=== PATIENT | female | born 1965 | race Native Hawaiian/Other Pacific Islander ===

== ENCOUNTER 2018-12-29 10:02 | Outpatient (CLI) | payer OTHER | END 2018-12-29 10:05 | disposition short-term general hospital (02) | LOC: AMB 10:02 | DX: R06.02 Shortness of breath (principal) | CPT/HCPCS: A0425; A0427 ==

== ENCOUNTER 2018-12-29 10:07 | Emergency (ER) | payer OTHER ==
[~2018-12-29] VITALS: Ht 160 cm; Wt 45.4 kg
[2018-12-29 10:46] LABS: PLATELET COUNT 343 K/uL (152-353)
[2018-12-29 11:15] LABS: POTASSIUM 3.7 mmol/L (3.6-5.2)
[2018-12-29 12:40] VITALS: BP 132/90; TEMP 97.8
== END 2018-12-29 12:40 | disposition home or self-care (01) ==
LOC: ED 10:13
PROVIDERS: Family Medicine
DX: F41.9 Anxiety disorder, unspecified (principal); R06.4 Hyperventilation; J06.9 Acute upper respiratory infection, unspecified
CPT/HCPCS: 36415; 80053; 81000; 85027; 96374; 99284; J2060

== ENCOUNTER 2023-01-14 16:21 | Emergency (ER) | payer BC ==
[~2023-01-14] VITALS: Ht 160 cm; Wt 45.4 kg
[2023-01-14 16:21] VITALS: BP 186/109; TEMP 97
[2023-01-14 16:38] LABS: PLATELET COUNT 279 K/uL (152-353)
[2023-01-14 16:52] LABS: POTASSIUM 3.6 mmol/L (3.6-5.2)
== END 2023-01-14 18:30 | disposition home or self-care (01) ==
LOC: ED 16:21
PROVIDERS: Emergency Medicine
DX: R10.32 Left lower quadrant pain (principal); F17.210 Nicotine dependence, cigarettes, uncomplicated
CPT/HCPCS: 80053; 81000; 85027; 96374; 96375; 99284; J1885; J2405; Q9963